=== PATIENT | male | born 1950 | race Caucasian/White ===

== ENCOUNTER 2019-11-03 22:22 | Emergency (ER) | payer MEDICARE, MEDICAID ==
[~2019-11-03] VITALS: Ht 167.6 cm; Wt 69.9 kg
--- NOTE | 2019-11-03 22:34 | NUR ---
PATIENT CAME TO ER FROM HOME BIB TO BED 6 C/O SOB. PER EMS REPORT, PATIENT WAS HAVING SOB FOR 2 WEEKS. PATIENT STATES THAT HE HAS COPD. DENIES HAVING ANY FEVER. AAOX3. CURRENTLY ON 2L OF N/C WITH 100% O2 SATURATION. BREATHING EVENLY. CONNECTED TO 911 TELECOMMUNICATOR.
--- NOTE | 2019-11-03 22:44 | NUR ---
BLOOD DRAWN AND SENT TO LAB.
[2019-11-03 22:46] LABS: BASOPHILS % (AUTO) 0.6 % (0.0-2.0); EOSINOPHILS % (AUTO) 0.8 % (0.0-6.0); HEMATOCRIT 39 % (39-51); HEMOGLOBIN 12.5 g/dL (13.5-17.5); LYMPHOCYTES # (AUTO) 0.5 /CMM (0.8-4.8); LYMPHOCYTES % (AUTO) 9.2 % (20.0-44.0); MEAN CORPUSCULAR HGB CONC 32 g/dl (31.0-36.0); MEAN CORPUSCULAR VOLUME 85 fL (80-96); MONOCYTES # (AUTO) 0.6 /CMM (0.1-1.30); MONOCYTES % (AUTO) 9.6 % (2.0-12.0); NEUTROPHILS # (AUTO) 4.6 /CMM (1.8-8.9); NEUTROPHILS % (AUTO) 79.8 % (43.0-81.0); PLATELET COUNT (AUTO) 253 /CMM (150-450); WHITE BLOOD COUNT (AUTO) 5.8 K/uL (4.3-11.0)
--- NOTE | 2019-11-03 22:52 | NUR ---
XRAY AT BEDSIDE
[2019-11-03 22:59] LABS: CALCIUM, SERUM 8.4 mg/dL (8.5-10.1); CARBON DIOXIDE 37 mmol/L (21-32); CHLORIDE 91 mmol/L (98-107); CREATININE 0.6 mg/dL (0.6-1.3); GLUCOSE 99 mg/dL (74-106); POTASSIUM 4.5 mmol/L (3.5-5.1); SODIUM SERUM 131 mmol/L (136-145); UREA NITROGEN, BLOOD 16 mg/dL (7-18)
--- NOTE | 2019-11-03 23:03 | NUR ---
PATIENT PULLED OUT IV. NOTIFIED. PATIENT STATES, "I THOUGHT I WAS DONE."
--- NOTE | 2019-11-03 23:10 | NUR ---
CALLED NURSING SUP FOR BED
[2019-11-03 23:12] LABS: ALANINE AMINOTRANSFERASE 16 U/L (12-78); ALBUMIN 3.3 g/dL (3.4-5.0); ALKALINE PHOSPHATASE 62 U/L (46-116); ASPARTATE AMINOTRANSFERASE 18 U/L (15-37); B-TYPE NATRIURETIC PEPTIDE 380 PG/ML (0-125); BILIRUBIN,DIRECT 0.1 mg/dL (0.0-0.2); BILIRUBIN,TOTAL 0.5 mg/dL (0.2-1.0); TOTAL PROTEIN, SERUM 6.8 g/dL (6.4-8.2)
--- NOTE | 2019-11-03 23:18 | NUR ---
NEW IV STARTED ON LEFT FOREARM 18G
--- NOTE | 2019-11-04 00:04 | NUR ---
COVID SWAB TAKEN AND SENT TO LAB.
--- NOTE | 2019-11-04 00:57 | NUR ---
PER INSURANCE REQUEST, PT WILL BE TRANSFERRED: PT WILL BE TRANSFERRED TO [facility] MD: DR. MAY BED ASSIGNMENT: [id number] NUMBER FOR REPORT: [phone]
--- NOTE | 2019-11-04 01:08 | NUR ---
[facility] ETA [id number]
[2019-11-04 01:51] VITALS: BP 137/67
--- NOTE | 2019-11-04 01:57 | NUR ---
REPORT GIVEN TO GENET MARTINEZ AT [facility].
--- NOTE | 2019-11-04 02:07 | NUR ---
REPORT GIVEN TO [facility] AND TRANSFER RESPONSIBILITIES.
== END 2019-11-04 02:14 | disposition short-term general hospital (02) ==
LOC: ER 22:22
DX: J44.9 Chronic obstructive pulmonary disease, unspecified (principal); R09.02 Hypoxemia; R94.31 Abnormal electrocardiogram [ECG] [EKG]
CPT/HCPCS: 36415; 71045-TC; 80048-TC; 80076-TC; 83605-TC; 83880; 84484-TC; 85025-TC; 85730-TC; 87040-TC; 87081-TC